=== PATIENT | male | born 1940 | race Caucasian/White ===

== ENCOUNTER 2017-02-03 09:07 | Outpatient (CLI) | payer MEDICARE, BC ==
[~2017-02-03] VITALS: Ht 190.5 cm; Wt 100.0 kg
[2017-02-03] VITALS (10 sets, daily range): BP systolic 130–176; BP diastolic 64–98; PULSE 68–105; TEMP 97.9–98.2
[~2017-02-03 09:07] MED LIST: ASPIRIN 32325 MG/TAB PO; BETIMOL 0.5% OPH5 ML OU; COZAAR 25MG25 MG/TAB PO; FLOMAX 0.40.4 MG/CAP PO; IMDUR 30MG30 MG/TAB PO; KLOR-CON 1010 MEQ PO; MOTRIN 200200 MG/TAB PO; MULTI VITAMINS1 TAB PO; NATURE'S BLEND100 M2 PO; OMEGA-3 1000 MG1 CAP PO; PRAVACHOL 20MG20 MG PO; PRESERVISION1 SGL PO; SINGULAIR 110 MG/TAB PO; VENTOLIN0.09 MG IH; ZETIA 10MG TAB10 MG PO
== END 2017-02-03 13:21 | disposition home or self-care (01) ==
LOC: COL.RAD 09:07
DX: D14.31 Benign neoplasm of right bronchus and lung (principal); J95.830 Postprocedural hemorrhage of a respiratory system organ or structure following a respiratory system procedure; Y83.8 Other surgical procedures as the cause of abnormal reaction of the patient, or of later complication, without mention of misadventure at the time of the procedure
CPT/HCPCS: 18871

== ENCOUNTER → 2022-07-12 | Day surgery (SDC) | payer MEDICARE, BC ==
[~2022-07-12] VITALS: Ht 182.9 cm; Wt 99.1 kg
[2022-07-12 20:11] VITALS: TEMP 98.6
[2022-07-12 22:35] VITALS: BP 111/65; PULSE 91
== END ==
LOC: SDCO 19:46
DX: T18.128A Food in esophagus causing other injury, initial encounter (principal); K21.00 Gastro-esophageal reflux disease with esophagitis, without bleeding; K22.2 Esophageal obstruction; X58.XXXA Exposure to other specified factors, initial encounter
CPT/HCPCS: J2704